=== PATIENT | male | born 2000 | race Caucasian/White ===

== ENCOUNTER 2018-12-27 22:08 | Emergency (ER) | payer OTHER ==
[~2018-12-27] VITALS: Ht 182.9 cm; Wt 154.2 kg
[~2018-12-27 22:08] MED LIST: KEFLEX500 MG PO; NAPROSYN500 MG PO; NOHOMEMEDICATIONS; NORCO 5-325 TA1 EACH PO; SSD CREAM 1% 5050 GM TOP
[2018-12-27] MEDS ORDERED: ADDERALL 10 MG10 MG PO (22:18)
[2018-12-27] MEDS ORDERED: BACTRIM DS TAB1 EACH PO (23:03)
[2018-12-27] MEDS ORDERED: NORCO 5-325 TA1 EAC1 PO (23:03)
[2018-12-27 23:25] VITALS: BP 132/80
== END 2018-12-27 23:27 | disposition home or self-care (01) ==
LOC: M.ERS 22:08
DX: L02.416 Cutaneous abscess of left lower limb (principal)